=== PATIENT | male | born 1945 | race Asian ===

== ENCOUNTER 2023-12-16 14:33 | Inpatient (IN) | payer BC, MEDICAID ==
[~2023-12-16] VITALS: Ht 172.7 cm; Wt 51.5 kg
[2023-12-16 15:10] LABS: Basophils # (auto) 0 10 ^3/uL (0-0.2); Eosinophils # (auto) 0 10 ^3/uL (0-0.8); Nucleated Red Blood Cells % 0.1 %
[2023-12-16 15:11] LABS: Basophils % (auto) 0.1 % (0.0-2.0); Hematocrit 38.6 % (41.0-53.0); Hemoglobin 13.2 g/dL (13.5-17.5); Lymphocytes # (auto) 0.7 10 ^3/uL (0.4-5.4); Lymphocytes % (auto) 8.6 % (10.0-50.0); Mean Corpuscular Hemoglobin 37.2 pg (28.0-32.0); Mean Corpuscular Hgb Conc. 34.2 g/dL (32.0-36.0); Mean Corpuscular Volume 108.6 fL (80.0-100.0); Monocytes # (auto) 0.6 10 ^3/uL (0-1.3); Monocytes % (auto) 7.3 % (0.0-12.0); Neutrophils # (auto) 6.4 10 ^3/uL (1.6-8.6); Red Blood Cells 3.55 10^6/uL (4.5-5.90); Red Cell Distribution Width 15.8 % (11.8-14.3); White Blood Cell 7.7 10^3/uL (4.4-10.8)
[2023-12-16 16:40] LABS: Alanine Aminotransferase 34 U/L (7-40); Albumin 3.5 g/dL (3.2-4.8); Alkaline Phosphatase 88 U/L (46-116); Anion Gap 7 (5-15); Aspartate Aminotransferase 28 U/L (13-40); BUN/Creatinine Ratio 17.5 (10.0-20.0); Bilirubin, Total 1.4 mg/dL (0.2-1.0); Blood Urea Nitrogen 11 mg/dL (9-23); Carbon Dioxide 23 mmol/L (20-30); Chloride 106 mmol/L (98-107); Glucose 138 mg/dL (74-106); Potassium 3.2 mmol/L (3.5-5.1); Sodium 136 mmol/L (136-145); Total Protein 5.6 g/dL (5.7-8.2)
[2023-12-16] MEDS ORDERED: TAMS0.4C36 PO (18:23)
[2023-12-16] MEDS ORDERED: AMLO1TAB23 PO (18:23)
[2023-12-16] MEDS ORDERED: ATOR10TA52 PO (18:23)
[2023-12-16] MEDS ORDERED: FIN5T PO (18:23)
[2023-12-16] MEDS ORDERED: ACETAMINOPHEN 325 MG TAB PO PRN (18:30)
[2023-12-16] MEDS ORDERED: ONDANSETRON HCL 4 MG/2 ML VIAL IV PRN (18:30)
[2023-12-16] MEDS ORDERED: DOCUSATE SOD 100 MG CAP PO PRN (18:30)
[2023-12-16] MEDS ORDERED: NITROGLYCERIN 0.4 MG SL TAB SL PRN (18:30)
[2023-12-16] MEDS ORDERED: HYDROcodone-ACET 5/325MG TAB PO PRN (18:30)
[2023-12-16] MEDS ORDERED: MORPHINE SULFATE INJ 2 MG/ml SYRG IV PRN ×2 (18:30)
[2023-12-16] MEDS: POTASSIUM EFFERVESENT TAB 25 MEQ PO ONE (18:53)
[2023-12-16 20:00] VITALS: PULSE 83; RESP 24; O2SAT 93
[2023-12-16 21:57] VITALS: BP 94/49; PULSE 83; RESP 24; TEMP 97.6; O2SAT 93
[2023-12-16 22:58] VITALS: BP 115/71; PULSE 81; RESP 17; TEMP 97.6; O2SAT 95
[2023-12-16 23:22] VITALS: PULSE 81; RESP 17; O2SAT 95
[2023-12-17] VITALS (22 sets, daily range): BP systolic 88–122; BP diastolic 46–76; PULSE 74–103; RESP 16–22; TEMP 97.7–98.8; O2SAT 87–100
[2023-12-17] MEDS ORDERED: OMEP-448 PO (00:57)
[2023-12-17] MEDS ORDERED: ALBU108A5 INH (01:01)
[2023-12-17] MEDS: IPRATROPIUM BROM 0.5 MG/2.5ML INH SOL NEB SCH ×2 (01:02→14:23)
[2023-12-17] MEDS: ALBUTEROL SULF 2.5 MG/0.5ML(0.5%) NEB SOLN NEB SCH ×2 (01:02→14:23)
[2023-12-17 02:32] LABS: COVID19 ANTIGEN SOFIA FIA NEGATIVE (NEGATIVE)
[2023-12-17 07:11] LABS: Basophils # (auto) 0 10 ^3/uL (0-0.2); Basophils % (auto) 0.2 % (0.0-2.0); Eosinophils # (auto) 0 10 ^3/uL (0-0.8); Eosinophils % (auto) 0.4 % (0.0-7.0); Hematocrit 39.8 % (41.0-53.0); Hemoglobin 13.5 g/dL (13.5-17.5); Lymphocytes # (auto) 1.4 10 ^3/uL (0.4-5.4); Lymphocytes % (auto) 20.8 % (10.0-50.0); Mean Corpuscular Hemoglobin 37.5 pg (28.0-32.0); Mean Corpuscular Volume 110.2 fL (80.0-100.0); Monocytes # (auto) 0.7 10 ^3/uL (0-1.3); Monocytes % (auto) 11.1 % (0.0-12.0); Neutrophils # (auto) 4.4 10 ^3/uL (1.6-8.6); Neutrophils % (auto) 67.5 % (37.0-80.0); Red Blood Cells 3.61 10^6/uL (4.5-5.90); Red Cell Distribution Width 15.7 % (11.8-14.3); White Blood Cell 6.5 10^3/uL (4.4-10.8)
[2023-12-17 07:29] LABS: Alanine Aminotransferase 32 U/L (7-40); Albumin 3.6 g/dL (3.2-4.8); Alkaline Phosphatase 93 U/L (46-116); Anion Gap 3 (5-15); Aspartate Aminotransferase 25 U/L (13-40); BUN/Creatinine Ratio 17.2 (10.0-20.0); Blood Urea Nitrogen 11 mg/dL (9-23); Calcium 9.6 mg/dL (8.5-10.1); Carbon Dioxide 26 mmol/L (20-30); Chloride 109 mmol/L (98-107); Glucose 99 mg/dL (74-106); Potassium 3.6 mmol/L (3.5-5.1); Sodium 138 mmol/L (136-145)
[2023-12-17 07:30] LABS: Bilirubin, Total 1.3 mg/dL (0.2-1.0)
[2023-12-17] MEDS: amLODIPine BESYLATE 5 MG TAB PO SCH (09:01)
[2023-12-17] MEDS: ENOXAPARIN SOD 40 MG/0.4 ML SYRINGE SC SCH (09:01)
[2023-12-17] MEDS: FINASTERIDE 5 MG TAB PO SCH (09:02)
[2023-12-17 10:09] LABS: Urine Bacteria None Seen /hpf (None Seen)
[2023-12-17 10:32] LABS: Urine Blood Negative /uL (Negative); Urine Clarity Turbid (Clear); Urine Color Yellow (Yellow); Urine Protein, UAD Negative (Negative); Urine Specific Gravity 1.017 (1.001-1.035); Urine Urobilinogen 6 mg/dL (Negative); Urine WBC 1 /hpf (0 - 3); Urine pH 6.5 (5.0-9.0)
[2023-12-17 11:00] LABS: CRP High Sensitivity 12.53 mg/dL (<1.0)
[2023-12-17 11:02] LABS: Folate (Folic Acid) 13.32 ng/mL (>5.38)
[2023-12-17 11:10] LABS: Magnesium 2.2 mg/dL (1.6-2.6)
[2023-12-17 11:20] LABS: Rapid Influenza A Negative (Negative); Rapid Influenza B Negative (Negative)
[2023-12-17] MEDS: AZITHROMYCIN 500MG/ 250ML 250 ML IV SCH (11:27)
[2023-12-17] MEDS ORDERED: IOHEXOL 350 MG/ML 100ML IJ ONE (13:18)
[2023-12-17] MEDS: methylPREDNISolone SOD SUCC 40 MG/ML VL IV ONE (13:23)
[2023-12-17] MEDS: TAMSULOSIN HYDROCHLORIDE 0.4 MG CAP PO SCH (18:19)
[2023-12-17] MEDS: CYANOCOBALAMIN (B-12) 1000 MCG/1 ML VIAL IM ONE (18:20)
[2023-12-17] MEDS: LEVALBUTEROL HCL 1.25 MG/3 ML NEB NEB SCH (18:57)
[2023-12-17] MEDS: ATORVASTATIN 20 MG TAB PO SCH (22:11)
[2023-12-18] VITALS (13 sets, daily range): BP systolic 97–119; BP diastolic 55–69; PULSE 74–95; RESP 16–22; TEMP 36.7; O2SAT 92–99
[2023-12-18 06:51] LABS: Basophils # (auto) 0 10 ^3/uL (0-0.2); Eosinophils # (auto) 0 10 ^3/uL (0-0.8); Lymphocytes # (auto) 0.5 10 ^3/uL (0.4-5.4); Lymphocytes % (auto) 9.8 % (10.0-50.0); Monocytes # (auto) 0.4 10 ^3/uL (0-1.3); Neutrophils # (auto) 4.6 10 ^3/uL (1.6-8.6); Nucleated Red Blood Cells % 0.1 %; White Blood Cell 5.6 10^3/uL (4.4-10.8)
[2023-12-18 06:53] LABS: Basophils % (auto) 0.1 % (0.0-2.0); Hematocrit 34.5 % (41.0-53.0); Mean Corpuscular Hgb Conc. 34.8 g/dL (32.0-36.0); Mean Corpuscular Volume 109.3 fL (80.0-100.0); Monocytes % (auto) 7.5 % (0.0-12.0); Neutrophils % (auto) 82.6 % (37.0-80.0); Red Blood Cells 3.15 10^6/uL (4.5-5.90); Red Cell Distribution Width 15.1 % (11.8-14.3)
[2023-12-18 07:07] LABS: Alanine Aminotransferase 29 U/L (7-40); Albumin 3.4 g/dL (3.2-4.8); Alkaline Phosphatase 94 U/L (46-116); Anion Gap 4 (5-15); Aspartate Aminotransferase 27 U/L (13-40); BUN/Creatinine Ratio 28.3 (10.0-20.0); Blood Urea Nitrogen 15 mg/dL (9-23); Calcium 9.3 mg/dL (8.5-10.1); Carbon Dioxide 26 mmol/L (20-30); Chloride 107 mmol/L (98-107); Glucose 120 mg/dL (74-106); Magnesium 2.1 mg/dL (1.6-2.6); Potassium 3.7 mmol/L (3.5-5.1); Sodium 137 mmol/L (136-145)
[2023-12-18 07:08] LABS: Bilirubin, Total 0.7 mg/dL (0.2-1.0); Total Protein 5.6 g/dL (5.7-8.2)
[2023-12-18] MEDS ORDERED: AZIT-185 PO (08:32)
[2023-12-18] MEDS ORDERED: FLUT1AER3 IN (08:32)
[2023-12-18] MEDS ORDERED: ALBUAER3 IN (08:32)
[2023-12-18] MEDS ORDERED: PRED20TA2 PO (08:32)
[2023-12-18] MEDS: methylPREDNISolone SOD SUCC 40 MG/ML VL IV SCH (09:52)
[2023-12-18] MEDS ORDERED: UMEC1AER IN (10:08)
== END 2023-12-18 17:00 | disposition home or self-care (01) | DRG 189 ==
LOC: EDBD 14:33 → ER 14:33 → OVERFLOW 18:23 → WEST WING 22:22
PROVIDERS: ADMIT Internal Medicine Pulmonary Disease; ATTEND Internal Medicine Pulmonary Disease
DX: J96.21 Acute and chronic respiratory failure with hypoxia (principal); J44.1 Chronic obstructive pulmonary disease with (acute) exacerbation; I10 Essential (primary) hypertension; E78.5 Hyperlipidemia, unspecified; N40.0 Benign prostatic hyperplasia without lower urinary tract symptoms; Z20.822 Contact with and (suspected) exposure to COVID-19; K21.9 Gastro-esophageal reflux disease without esophagitis; F17.210 Nicotine dependence, cigarettes, uncomplicated; Z79.899 Other long term (current) drug therapy
CPT/HCPCS: 36415; 36600; 70450; 71045; 71275; 80053; 80061; 81001; 82607; 82746; 82805; 83605; 83735; 83880; 84443; 84484; 85025; 85379; 86141; 87081; 87426; 87804; 93005; 93970; 94640; G0378

== ENCOUNTER 2025-05-14 12:50 | Inpatient (IN) | payer BC, MEDICAID ==
[~2025-05-14] VITALS: Ht 172.7 cm; Wt 41.0 kg
[~2025-05-14 12:50] MED LIST: ALBU108A5 INH; ALBUAER3 IN; AMLO1TAB23 PO; ATOR10TA52 PO; AZIT-185 PO; FIN5T PO; OMEP-448 PO; PRED20TA2 PO; TAMS0.4C39 PO; UMEC1AER IN
--- NOTE | 2025-05-14 13:36 | ED.PDOC ---
Musculoskeletal HPI Comments A 79 YEAR OLD MALE PRESENTS TO THE ED WITH COMPLAINT OF RIGHT HIP PAIN. PATIENT PRESENTS WITH GRANDDAUGHTER WHO STATES THAT PATIENT HAS BEEN COMPLAINING OF RIGHT HIP PAIN FOR THE PAST ONE WEEK. PATIENT GRANDDAUGHTER STATES THAT PATIENT DENIES ANY ASSOCIATED INJURY OR TRAUMA. PATIENT HAS BEEN HAVING PAIN WHEN ATTEMPTING TO AMBULATE AND ASSOCIATED INCREASE PAIN WHEN SITTING. PATIENT DENIES FEVER, CHILLS, SHORTNESS OF BREATH, CHEST PAIN, ABDOMINAL PAIN, NAUSEA, VOMITING, HEADACHE, OR OTHER COMPLAINTS. NO OTHER SYMPTOMS OR MODIFYING FACTORS AT THIS TIME. PATIENT IS ALERT, ORIENTED X 4, AND HAS STEADY GAIT. Chief Complaint: Lower Extremity Time Seen by MD: 13:34 Reviewed Notes: Nurses Notes, Medications, Allergies Allergies: Coded Allergies: NO KNOWN ALLERGIES (Unverified , 12/16/23) Home Meds Active Scripts Umeclidinium-Vilanterol (Anoro Ellipta 62.5-25 Mcg/INH) 1 Aer Aer, 1 AER IN DAILY for 30 Days, #1 AER 2 Refills Prov:SRI ADEN RESIDENT 12/18/23 Albuterol Sulfate (VENTOLIN MDI) 90 Mcg Ih, 90 MCG IN PRN for 30 Days, #1 INH 2 Refills Prov:SRI ADEN RESIDENT 12/18/23 Prednisone (Prednisone) 20 Mg Tab, 20 MG PO DAILY for 5 Days, #5 MG Prov:SRI ADEN RESIDENT 12/18/23 Azithromycin (ZITHROMAX TABLET) 250 Mg Tb, 250 MG PO DAILY for 5 Days, #5 TAB Prov:SRI ADEN RESIDENT 12/18/23 Reported Medications Albuterol Sulfate (Albuterol Sulfate Hfa) 108 Mcg/Act Aer, INH 12/17/23 Omeprazole (Omeprazole Dr) 40 Mg Cap, 1 CAP PO DAILY 12/17/23 Tamsulosin Hcl (Tamsulosin Hcl) 0.4 Mg Cap, 1 TAB PO DAILY 12/16/23 Finasteride (Finasteride) 5 Mg Tab, 1 TAB PO DAILY 12/16/23 Atorvastatin Calcium (ATORVASTATIN CALCIUM) 10 Mg Tab, 1 TAB PO DAILY 12/16/23 Amlodipine Besylate (Amlodipine Besylate) 10 Mg Tab, 1 TAB PO DAILY 12/16/23 Information Source: Patient Mode of Arrival: Wheelchair Brought in by: GRANDDAUGHTER Location: Right Extremity Location: Hip Timing: Days Severity: Moderate Able to Move Extremity: No Bear Weight: Limited Pain: Moderate Hand Dominance: Right Mechanism: Spontaneous Circumstances: Unknown Onset of Symptoms: Spontaneous Symptoms: Pain DVT Risk Factors: NONE Last Tetanus: UTD Associated signs and symptoms: Hip pain Past Medical History PAST MEDICAL HISTORY: HTN Surgical History: Denies all surgeries Family History Family History: Reviewed,noncontributory to illness Social History Smoker: Non-Smoker Alcohol: Denies ETOH Use Drugs: Denies Drug Use Lives In: Home Constitutional: denies: chills, diaphoresis, fatigue, fever, malaise, sweats, weakness, others EENTM: denies: blurred vision, double vision, ear bleeding, ear discharge, ear drainage, ear pain, ear ringing, eye pain, eye redness, hearing loss, mouth pain, mouth swelling, nasal discharge, nose bleeding, nose congestion, nose pain, photophobia, tearing, throat pain, throat swelling, voice changes, others Respiratory: denies: cough, hemoptysis, orthopnea, SOB at rest, shortness of breath, SOB with excertion, stridor, wheezing, others Cardiovascular: denies: chest pain, dizzy spells, diaphoresis, Dyspnea on exertion, edema, irregular heart beat, left arm pain, lightheadedness, palpitations, PND, syncope, others Gastrointestinal: denies: abdomen distended, abdominal pain, blood streaked bowels, constipated, diarrhea, dysphagia, difficulty swallowing, hematemesis, me olman, nausea, poor appetite, poor fluid intake, rectal bleeding, rectal pain, vomiting, others Genitourinary: denies: burning, dysuria, flank pain, frequency, hematuria, incontinence, penile discharge, penile sore, pain, testicle pain, testicle swelling, urgency, others Neurological: denies: dizziness, fainting, headache, left sided numbness, left sided weakness, numbness, paresthesia, pre-existing deficit, right sided numbness, right sided weakness, seizure, speech problems, tingling, tremors, weakness, others Musculoskeletal: reports: joint pain (RIGHT HIP), muscle pain; denies: back pain, gout, joint swelling, muscle stiffness, neck pain, others Integumetry: denies: bruises, change in color, change in hair/nails, dryness, laceration, lesions, lumps, rash, wounds, others Allergic/Immunocompromised: denies: Difficulty Healing, Frequent Infections, Hives, Itching, others Hematologic/Lymphatic: denies: anemia, blood clots, easy bleeding, easy bruising, swollen glands, others Endocrine: denies: excessive hunger, excessive sweating, excessive thirst, excessive urination, flushing, intolerance to cold, intolerance to heat, unexplained weight gain, unexplained weight loss, others Psychiatric: denies: anxiety, bipolar disorder, depression, hopeless, panic disorder, schizophrenia, sleepless, suicidal, others All Other Systems: Reviewed and Negative Physical Exam General Appearance: Mild Distress, Thin HEENT: Normal ENT Inspection, PERRL/EOMI, Pharynx Normal, TMs Normal Neck: Full Range of Motion, Non-Tender, Normal, Normal Inspection Respiratory: Chest Non-Tender, Lungs Clear, No Accessory Muscle Use, No Respiratory Distress, Normal Breath Sounds Cardiovascular: No Edema, No JVD, No Murmur, No Gallop, Normal Peripheral Pulses, Regular Rate/Rhythm Breast Exam: Deferred Gastrointestinal: No Organomegaly, Non Tender, No Pulsatile Mass, Normal Bowel Sounds, Soft Genitalia: Deferred Pelvic: Deferred Rectal: Deferred Extremities: Decreased range of motion, No calf tenderness, Normal capillary refill, Normal inspection, No pedal edema, Tender (RIGHT POSTERIOR HIP, NO REDNESS, SWELLING AND DEFORMITY. ) Musculoskeletal : Apperance: Normal Neurologic: Alert, director of revenue cycle management II-XII nml as Tested, No Motor Deficits, Normal Affect, Normal Mood, No Sensory Deficits Cerebellar Function: Normal Reflexes: Normal Skin: Dry, Normal Color, Warm Peripheral Pulses: 2+ carotid (R), 2+ carotid (L) Lymphatic: No Adenopathy Was a procedure done? Was a procedure done?: No Differential Diagnosis EXT Differential Diagnosis: Fracture, Sprain, Strain, Arthritis, Bursitis X-Ray, Labs, Meds, VS Vital Signs Date Time Temp Pulse Resp B/P (MAP) Pulse Ox O2 Delivery O2 Flow Rate FiO2 05/14/25 15:35 97.9 88 16 113/75 (88) 95 97.9 05/14/25 15:35 88 16 95 Room Air 05/14/25 12:52 98.4 78 16 118/70 94 98.4 Lab Test 05/14/25 13:11 Range/Units White Blood Count 6.8 4.4-10.8 10^3/uL Red Blood Count 3.69 L 4.5-5.90 10^6/uL Hemoglobin 13.8 13.5-17.5 g/dL Hematocrit 39.8 L 41.0-53.0 % Mean Corpuscular Volume 107.8 H 80.0-100.0 fL Mean Corpuscular Hemoglobin 37.4 H 28.0-32.0 pg Mean Corpuscular Hemoglobin Concent 34.7 32.0-36.0 g/dL Red Cell Distribution Width 13.6 11.8-14.3 % Platelet Count 387 140-450 10^3/uL Mean Platelet Volume 8.2 6.9-10.8 fL Neutrophils (%) (Auto) 68.6 37.0-80.0 % Lymphocytes (%) (Auto) 21.3 10.0-50.0 % Monocytes (%) (Auto) 9.0 0.0-12.0 % Eosinophils (%) (Auto) 0.4 0.0-7.0 % Basophils (%) (Auto) 0.7 0.0-2.0 % Neutrophils # (Auto) 4.6 1.6-8.6 10 ^3/uL Lymphocytes # (Auto) 1.4 0.4-5.4 10 ^3/uL Monocytes # (Auto) 0.6 0-1.3 10 ^3/uL Eosinophils # (Auto) 0 0-0.8 10 ^3/uL Basophils # (Auto) 0 0-0.2 10 ^3/uL Nucleated Red Blood Cells 0.1 % Sodium Level 143 136-145 mmol/L Potassium Level 2.9 L 3.5-5.1 mmol/L Chloride Level 103 98-107 mmol/L Carbon Dioxide Level 29 20-31 mmol/L Anion Gap 11 5-15 Blood Urea Nitrogen 12 9-23 mg/dL Creatinine 0.74 0.700-1.30 mg/dL Glomerular Filtration Rate Calc 92 >90 mL/min BUN/Creatinine Ratio 16.2 10.0-20.0 Serum Glucose 152 H 74-106 mg/dL Calcium Level 9.3 8.7-10.4 mg/dL Current Medications Medications (Trade) Dose Ordered Sig/Christine Route Start Time Stop Time Status Last Admin Potassium Bicarbonate (Klor-Con/Ef) 50 meq ONCE ONCE PO 05/14/25 15:00 05/14/25 15:01 DC 05/14/25 15:21 Sodium Chloride 1,000 ml @ 1,000 mls/hr Q1H ONCE IV 05/14/25 15:00 05/14/25 15:59 DC 05/14/25 15:04 Acetaminophen/ Hydrocodone Bitart ([place] 5/325MG Tab) 1 tab ONCE ONCE PO 05/14/25 15:00 05/14/25 15:01 DC 05/14/25 15:20 [place] [address] Ph: [phone] DIAGNOSTIC IMAGING Diagnostic Imaging Report : [id number] Signed PATIENT: MILLER PAUL ACCT: [id number] UNIT: [id number] : 1945 LOC: ER ROOM / BED: / AGE / SEX: 79 / M ADM STATUS: REG ER SERVICE 1341 ORDERING PHYSICIAN: JUN CACERES PROCEDURE(s): RHPCT - CT R HIP WITH OUT CONTRAST REASON: RIGHT HIP PAIN, NO INJURY, UNABLE TO WALK ORDER NUMBER(s): [id number], ACCESSION NUMBER(s): [id number] EXAMINATION: CT CT R HIP WITH OUT CONTRAST INDICATION: RIGHT HIP PAIN, NO INJURY, UNABLE TO WALK COMPARISON: None TECHNIQUE: CT of the right hip was performed without contrast. Volume transverse images were obtained reconstructed in multiple planes using bone and soft tissue algorithms. FINDINGS: Osteopenia. No acute fracture or dislocation Mild right hip degenerative changes with osteophytosis. No joint effusion. Soft tissues are unremarkable. No fluid collections. Atherosclerotic vascular calcifications are noted. IMPRESSION: No acute abnormality of the right hip Mild right hip osteoarthritis ATED BY: SARITA SELBY MD DICTATED DATE/TIME: 05/14/251431 SIGNED BY: SARITA SELBY MD SIGNED DATE/TIME: 05/14/251431 CC: [place] [id number] Ph: [phone] DIAGNOSTIC IMAGING Diagnostic Imaging Report : [id number] Signed PATIENT: MILLER PAUL ACCT: [id number] UNIT: [id number] : 1945 LOC: ER ROOM / BED: / AGE / SEX: 79 / M ADM STATUS: REG ER SERVICE 1503 ORDERING PHYSICIAN: JUN CACERES PROCEDURE(s): LS2CT - LS SPINE WO CONTRAST REASON: LOW BACK PAIN TO RT HIP; UNABLE TO BEAR WEIGHT ORDER NUMBER(s): [id number], ACCESSION NUMBER(s): [id number] EXAM: CT LS SPINE WO CONTRAST HISTORY: LOW BACK PAIN TO RT HIP; UNABLE TO BEAR WEIGHT COMPARISON: None CTDIvol 7.14 mGy, DLP 238.09 mGy*cm. TECHNIQUE: Multiple axial CT images of the spine were obtained using bone algorithm. Axial and coronal reformatting was done. Bone and soft tissue windows were reviewed. FINDINGS: 5 [id number] lumbar-type vertebrae. Mild straightening of the lumbar lordosis. The vertebral body heights are maintained. Diffuse demineralization. Acute minimally displaced fracture of superior S2. Mild posterior disc bulges from L2-L3 through L5-S1 causing mild spinal canal stenosis at L3-L4 with severe spinal canal stenosis at L4-L5 and mild spinal canal stenosis at L5-S1. [id number]-[id number] bilateral neural foramina stenosis L4 with Moderate bilateral neural foramina stenosis at L4-L5 and severe bilateral neural foramina stenosis at L5-S1. The paraspinal muscles unremarkable. Punctate nonobstructing left renal calculus. Otherwise, Kidneys and ureters unremarkable. Large amount of fecal material within the partially visualized:. Emphysematous changes of the lung bases with bibasilar atelectasis / scarring. IMPRESSION: Acute minimally displaced fracture of superior S2. ATED BY: BATSHEVA MELENDEZ DO DICTATED DATE/TIME: 05/14/251548 SIGNED BY: BATSHEVA MELENDEZ DO SIGNED DATE/TIME: 05/14/251548 CC: X-Ray, Labs, Meds, VS Comment COURSE: EXTERNAL MEDICAL RECORDS REVIEWED: [NONE] INDEPENDENT HISTORIANS: [NONE] SOCIAL DETERMINANTS OF HEALTH: [NONE] LABS ORDERED: CBC, BMP, UA REVIEWED AND INTERPRETED RESULTS: NONE IMAGING ORDERED: RIGHT HIP CT TREATMENTS ORDERED: [place] 5/325 PO, KCL 75MEQ, 0,9 NS 1L PROCEDURES PERFORMED: NONE CRITICAL CARE TIME: NONE I HAVE DISCUSSED THE PATIENT WITH THE ATTENDING PHYSICIAN DR. BOUCHER AND HE AGREES WITH THE PATIENT'S PLAN OF CARE AND DISPOSITION. PATIENT PRESENTS TO THE ED WITH RIGHT HIP PAIN. PATIENT HAD CT HIP WHICH SHOWED ARTHRITIS OF RIGHT HIP. PATIENT HAD CT-LS-SPINE SHOWED: DEGENERATIVE DISC DISEASE/SPINAL STENOSIS AND S2 FX. PATIENT OTHERWISE HAD LAB SIGNIFICANT POTASSIUM OF 2.9. PATIENT OTHERWISE HAS DIFFICULTY AMBULATING AND PAIN WITH ATTEMPTED AMBULATION. PATIENT WE WILL BE ADMITTED TO THE HOSPITALIST TEAM FOR F URTHER EVALUATION REGARDING HIS GAIT DIFFICULTIES AND AND LOW POTASSIUM. Time of 1ST Reevaluation: 14:05 Reevaluation 1ST: Unchanged Time of 2ND Reevaluation: 17:01 Reevaluation 2ND: Unchanged Patient Education/Counseling: Diagnosis, Treatment Family Education/Counseling: Diagnosis, Treatment Departure 1 Departure Time of Disposition: 17:01 Impression: Primary Impression: Sacral fracture Qualified Codes: S32.111A - Minimally displaced zone i fracture of sacrum, initial encounter for closed fracture Additional Impressions: Spinal stenosis Qualified Codes: M48.05 - Spinal stenosis, thoracolumbar region Hip arthritis Qualified Codes: M16.11 - Unilateral primary osteoarthritis, right hip Hypokalemia Intractable pain Disposition: ADMITTED INPATIENT Condition: Serious Critical Care Note Critical Care Time?: No Stability Stability form required: Yes Unstable for transfer: Requires medication, ED Physician Assesment, Possible rapid decline Heart Score Heart Score: Heart Score Response (Comments) Value History N/A 0 EKG N/A 0 Age N/A 0 Risk Factors N/A 0 Troponin N/A 0 Total 0 I personally scribed for JUN CACERES ([email or web address]) on 05/14/25 at 13:36. Electronically submitted by Maylin Jane ([employer]). I personally scribed for JUN CACERES ([email or web address]) on 05/14/25 at 14:43. Electronically submitted by Maylin Jane ([email or web address]). I personally scribed for JUN CACERES ([email or web address]) on 05/14/25 at 14:44. Electronically submitted by Maylin Jane ([employer]). I personally scribed for JUN CACERES ([email or web address]) on 05/14/25 at 15:23. Electronically submitted by Maylin Jane ([facility] I personally scribed for JUN CACERES ([email or web address]) on 05/14/25 at 16:17. Electronically submitted by Maylin Jane ([employer]). I personally scribed for JUN CACERES ([email or web address]) on 05/14/25 at 16:23. Electronically submitted by Maylin Jane ([facility] JUN CACERES May 14, 2025 13:36
[2025-05-14 13:39] LABS: Hematocrit 39.8 % (41.0-53.0)
[2025-05-14 13:41] LABS: Hemoglobin 13.8 g/dL (13.5-17.5); Mean Corpuscular Hemoglobin 37.4 pg (28.0-32.0); Mean Corpuscular Volume 107.8 fL (80.0-100.0); Nucleated Red Blood Cells % 0.1 %
[2025-05-14 13:45] LABS: Chloride 103 mmol/L (98-107); Sodium 143 mmol/L (136-145)
[2025-05-14 13:46] LABS: Anion Gap 11 (5-15); Calcium 9.3 mg/dL (8.7-10.4); Carbon Dioxide 29 mmol/L (20-31)
[2025-05-14 13:52] LABS: BUN/Creatinine Ratio 16.2 (10.0-20.0); Blood Urea Nitrogen 12 mg/dL (9-23)
[2025-05-14 13:54] LABS: Glucose 152 mg/dL (74-106); Potassium 2.9 mmol/L (3.5-5.1)
--- NOTE | 2025-05-14 14:34 | DVH ---
EXAMINATION: CT CT R HIP WITH OUT CONTRAST INDICATION: RIGHT HIP PAIN, NO INJURY, UNABLE TO WALK COMPARISON: None TECHNIQUE: CT of the right hip was performed without contrast. Volume transverse images were obtained reconstructed in multiple planes using bone and soft tissue algorithms. FINDINGS: Osteopenia. No acute fracture or dislocation Mild right hip degenerative changes with osteophytosis. No joint effusion. Soft tissues are unremarkable. No fluid collections. Atherosclerotic vascular calcifications are noted. IMPRESSION: No acute abnormality of the right hip Mild right hip osteoarthritis
[2025-05-14] MEDS: SODIUM CHLORIDE 0.9% 1,000 ML IV ONE (15:04)
[2025-05-14] MEDS: HYDROcodone-ACET 5/325MG TAB PO ONE (15:20)
[2025-05-14] MEDS: POTASSIUM EFFERVESENT TAB 25 MEQ PO ONE ×2 (15:21→20:07)
[2025-05-14 15:35] VITALS: BP 113/75; PULSE 88; RESP 16; TEMP 97.9; O2SAT 95
--- NOTE | 2025-05-14 15:52 | DVH ---
EXAM: CT LS SPINE WO CONTRAST HISTORY: LOW BACK PAIN TO RT HIP; UNABLE TO BEAR WEIGHT COMPARISON: None CTDIvol 7.14 mGy, DLP 238.09 mGy*cm. TECHNIQUE: Multiple axial CT images of the spine were obtained using bone algorithm. Axial and coronal reformatting was done. Bone and soft tissue windows were reviewed. FINDINGS: 5 [id number] lumbar-type vertebrae. Mild straightening of the lumbar lordosis. The vertebral body heights are maintained. Diffuse demineralization. Acute minimally displaced fracture of superior S2. Mild posterior disc bulges from L2-L3 through L5-S1 causing mild spinal canal stenosis at L3-L4 with severe spinal canal stenosis at L4-L5 and mild spinal canal stenosis at L5-S1. Cgfg-th-[id number] bilateral neural foramina stenosis L4 with Moderate bilateral neural foramina stenosis at L4-L5 and severe bilateral neural foramina stenosis at L5-S1. The paraspinal muscles unremarkable. Punctate nonobstructing left renal calculus. Otherwise, Kidneys and ureters unremarkable. Large amount of fecal material within the partially visualized:. Emphysematous changes of the lung bases with bibasilar atelectasis / scarring. IMPRESSION: Acute minimally displaced fracture of superior S2.
[2025-05-14 21:58] LABS: Chloride 105 mmol/L (98-107); Sodium 142 mmol/L (136-145)
[2025-05-14 21:59] LABS: Anion Gap 8 (5-15); Carbon Dioxide 29 mmol/L (20-31); Potassium 3.3 mmol/L (3.5-5.1)
[2025-05-14 22:04] LABS: BUN/Creatinine Ratio 14.7 (10.0-20.0); Blood Urea Nitrogen 11 mg/dL (9-23)
[2025-05-14 22:06] LABS: Calcium 8.3 mg/dL (8.7-10.4); Glucose 109 mg/dL (74-106)
--- NOTE | 2025-05-14 23:05 | DVHHP2 ---
History of Present Illness History of Present Illness Patient is 79 years old male Irish language speaking with a past medical history of COPD, hypertension, hyperlipidemia, BPH, nicotine dependence came with a complaint of right hip pain. As per patient he has been having right hip pain, sudden onset, started when he was sleeping, 9/10, constant, increased with movement, decreased with rest. Patient reported he usually use wheelchair at home but lately minimal movement is causing him hip pain. Patient also reported constipation for last 4-5 days. . Patient denied any fever, redness or swelling, trauma or fall or injury to the hip or back. Patient denied any fever, dysuria, diarrhea, nausea or vomiting chest pain no shortness of breaths. Initial lab workup revealed MCV 107, potassium 2.[address] scan of the right hip revealed-No acute abnormality of the right hip. Mild right hip osteoarthritis. Acute minimally displaced fracture of superior S2. Mild post erior disc bulges from L2-L3 through L5-S1 causing mild spinal canal stenosis at L3-L4 with severe spinal canal stenosis at L4-L5 and mild spinal canal stenosis at L5-S1. Pmlj-ld-raejhbvi bilateral neural foramina stenosis L4 with Moderate bilateral neural foramina stenosis at L4-L5 and severe bilateral neural foramina stenosis at L5-S1. PMH-COPD, hypertension, hyperlipidemia, BPH, nicotine dependence PSH- none Family history-none Allergy- NKDA Personal History/ Social History- smokes 10 cigarettes per day for last 50 years almost, drinks alcohol daily, 3 of the 75 mL bottle liquor every day, denies substance abuse, lives with Review of Systems Review of Systems Cardiovascular- deny acute chest pain or shortness of breath or cough or palpitation Respiratory denies cough or short of breath or wheezing Gastrointestinal- denies any rectal bleeding, nausea or vomiting Neurological- denies acute dysarthria, dysphagia, change in vision Psychiatry- denies depression or SI or HI Skin- denies acute rash or purpura Allergies: Coded Allergies: NO KNOWN ALLERGIES (Unverified , 12/16/23) Medications Current Medications Medications Dose Ordered Sig/Christine Route Start Time Stop Time Status Last Admin Dose Admin Acetaminophen/ Hydrocodone Bitart 1 tab Q4HP PRN PO 05/14/25 23:15 UNV Docusate Sodium 100 mg BIDPRN PRN PO 05/14/25 23:15 UNV Enoxaparin Sodium 40 mg DAILY SC 05/15/25 10:00 UNV Acetaminophen 650 mg Q6HP PRN PO 05/14/25 23:15 UNV Exam Vital Signs Vital Signs Date Time Temp Pulse Resp B/P (MAP) Pulse Ox O2 Delivery O2 Flow Rate FiO2 05/14/25 15:35 97.9 88 16 113/75 (88) 95 97.9 05/14/25 15:35 Room Air Exam General examination- awake, alert, oriented HEENT- PEERLA, no acute nasal discharge Cardiovascular- S1-S2 audible, rate and rhythm regular, no murmur Respiratory- CTAB, no wheeze or rhonchi Gastrointestinal-nontender, bowel sound+. Nondistended Musculoskeletal-right buttock tenderness Lower extremity- no leg edema Neurological- cranial nerves intact, no acute dysarthria or dysphagia Psychiatry- denies depression or SI or HI Skin- no acute rash or purpura Labs/Xrays Labs Test 05/14/25 20:35 05/14/25 13:11 Range/Units Sodium Level 142 136-145 mmol/L Potassium Level 3.3 L 3.5-5.1 mmol/L Chloride Level 105 98-107 mmol/L Carbon Dioxide Level 29 20-31 mmol/L Anion Gap 8 5-15 Blood Urea Nitrogen 11 9-23 mg/dL Creatinine 0.75 0.700-1.30 mg/dL Glomerular Filtration Rate Calc 91 >90 mL/min BUN/Creatinine Ratio 14.7 10.0-20.0 Serum Glucose 109 H 74-106 mg/dL Calcium Level 8.3 L 8.7-10.4 mg/dL White Blood Count 6.8 4.4-10.8 10^3/uL Red Blood Count 3.69 L 4.5-5.90 10^6/uL Hemoglobin 13.8 13.5-17.5 g/dL Hematocrit 39.8 L 41.0-53.0 % Mean Corpuscular Volume 107.8 H 80.0-100.0 fL Mean Corpuscular Hemoglobin 37.4 H 28.0-32.0 pg Mean Corpuscular Hemoglobin Concent 34.7 32.0-36.0 g/dL Red Cell Distribution Width 13.6 11.8-14.3 % Platelet Count 387 140-450 10^3/uL Mean Platelet Volume 8.2 6.9-10.8 fL Neutrophils (%) (Auto) 68.6 37.0-80.0 % Lymphocytes (%) (Auto) 21.3 10.0-50.0 % Monocytes (%) (Auto) 9.0 0.0-12.0 % Eosinophils (%) (Auto) 0.4 0.0-7.0 % Basophils (%) (Auto) 0.7 0.0-2.0 % Neutrophils # (Auto) 4.6 1.6-8.6 10 ^3/uL Lymphocytes # (Auto) 1.4 0.4-5.4 10 ^3/uL Monocytes # (Auto) 0.6 0-1.3 10 ^3/uL Eosinophils # (Auto) 0 0-0.8 10 ^3/uL Basophils # (Auto) 0 0-0.2 10 ^3/uL Nucleated Red Blood Cells 0.1 % SEPSIS Sepsis Screen Date sepsis recognized/suspect: May 14, 2025 Time Sepsis recognized/suspect: 1257 Recent Procedure: No On Antibiotic Therapy: No Respiratory Rate >20: No Heart Rate >90: No Temp<36 C (96.8 F) or >38.3 C: No SBP <90 or MAP <65 mmHG: No New Acute Mental Status Change: No Is the patient on CPAP, BIPAP,: No Physician Orders Admit (05/14/25 23:02) Code Status (05/14/25 23:02) 2 Gm Sodium Diet (05/15/25 Breakfast) Hydrocodone-Acet 5/325mg Tab ([place] 5/32 (05/14/25 23:15) Docusate Sodium Capsule (Colace Capsule) (05/14/25 23:15) Enoxaparin Sodium (Lovenox) (05/15/25 10:00) Complete Blood Count (05/15/25 04:00) Comprehensive Metabolic Panel (05/15/25 04:00) Cardiac Diet-2gna,Lofat,Lochol (05/15/25 Breakfast) Acetaminophen Tablet (Tylenol Tablet) (05/14/25 23:15) Notify Of Changes From Base (05/14/25 23:02) Vital Signs Date Time Temp Pulse Resp B/P (MAP) Pulse Ox O2 Delivery O2 Flow Rate FiO2 05/14/25 15:35 97.9 88 16 113/75 (88) 95 97.9 05/14/25 15:35 88 16 95 Room Air Laboratory Tests Test 05/14/25 13:11 White Blood Count 6.8 10^3/uL (4.4-10.8) Medications Medications Dose Ordered Sig/Christine Route Start Time Stop Time Status Last Admin Dose Admin Acetaminophen/ Hydrocodone Bitart 1 tab ONCE ONCE PO 05/14/25 15:00 05/14/25 15:01 DC 05/14/25 15:20 1 TAB Potassium Bicarbonate 25 meq ONCE ONCE PO 05/14/25 17:15 05/14/25 17:16 DC 05/14/25 20:07 25 MEQ Potassium Bicarbonate 50 meq ONCE ONCE PO 05/14/25 15:00 05/14/25 15:01 DC 05/14/25 15:21 50 MEQ Sodium Chloride 1,000 ml @ 1,000 mls/hr Q1H ONCE IV 05/14/25 15:00 05/14/25 15:59 DC 05/14/25 15:04 1,000 MLS/HR Assessment/Plan Assessment/Plan Assessment and plan #Acute minimally displaced fracture of superior S2. # intractable right hip pain likely due to osteoarthritis # spinal stenosis # lumbar lordosis #Mild posterior disc bulges from L2-L3 through L5-S1 - CT scan of the right hip revealed-No acute abnormality of the right hip. Mild right hip osteoarthritis -CT scan of the lumbar spine- Acute minimally displaced fracture of superior S2. Spinal stenosis lumbar 3 to lumbar 5 -continue pain medication as prescribed -ordered orthopedic consult # COPD no acute exacerbation -nebulization p.r.n. as prescribed # BPH -resume home medication Flomax and finasteride # hypertension - resume home medication amlodipine # alcohol abuse -ordered banana bag -ordered thiamine and folic acid -on CIWA protocol -counseled about the effect of alcoholism on health # current smoker -counseled about the effect of smoking on health Doix-zre-hcgd diet PCP- Domingo Morejon Goals of care, Code status full code ; discussed with >15 minutes PUD prophylaxis: No acute indicate DVT prophylaxis: Lovenox Plan discussed with Dr. Vallejo , nursing staff, patient Total time spent on patient evaluation, chart review, assessment and plan, discussion discussion >35 minutes Plan discussed with: Patient, Other (RN,.) My Orders Orders - ONUR DOE Procedure Category Date Status Time Admit ADMIT 05/14/25 Transmitted 23:02 Code Status CODE 05/14/25 Transmitted 23:02 2 Gm Sodium Diet DIET 05/15/25 Transmitted Breakfast Hydrocodone-Acet PHA 05/14/25 Logged 5/325mg Tab ([place] 23:15 Docusate Sodium PHA 05/14/25 Logged Capsule (Colace 23:15 Enoxaparin Sodium PHA 05/15/25 Logged (Lovenox) 10:00 Complete Blood Count LAB 05/15/25 Verified 04:00 Comprehensive LAB 05/15/25 Verified Metabolic Panel 04:00 Cardiac DIET 05/15/25 Transmitted Diet-2gna,Lofat,Lochol Breakfast Acetaminophen Tablet PHA 05/14/25 Logged (Tylenol Tablet) 23:15 Notify Of Changes MABEL 05/14/25 In Process From Base 23:02 Date of Service: May 14, 2025 Billing Provider: BRISA VALLEJO MD Common Visit Codes: 06154-BRVOVXR INP/OBS CARE (HIGH) Secondary Visit Codes: 51630-[id number] CARE PLAN 30 MINUTES ONUR DOE May 14, 2025 23:05
[2025-05-14] MEDS ORDERED: HYDROcodone-ACET 5/325MG TAB PO PRN (23:15)
[2025-05-14] MEDS ORDERED: DOCUSATE SOD 100 MG CAP PO PRN (23:15)
[2025-05-14] MEDS ORDERED: IPRATROPIUM BROM 0.5 MG/2.5ML INH SOL NEB PRN (23:15)
[2025-05-14] MEDS ORDERED: ALBUTEROL SULF 2.5 MG/0.5ML(0.5%) NEB SOLN NEB PRN (23:15)
[2025-05-14] MEDS ORDERED: THIAMINE 100mg/ml INJ (200mg/2ml VIAL) IV ONE (23:15)
[2025-05-14] MEDS ORDERED: ACETAMINOPHEN 325 MG TAB PO PRN (23:15)
[2025-05-14] MEDS: FOLIC ACID 1 MG in D5W 5% 50 ML INJ ONE (23:44)
[2025-05-14] MEDS ORDERED: FOLIC ACID 1 MG TAB PO ONE (23:45)
--- NOTE | 2025-05-15 06:41 | DVHDSRES ---
Discharge Summary Date of Admission Resident Creating Document: ONUR DOE RESIDENT May 14, 2025 at 23:02 Date of Discharge: May 15, 2025 Admitting Diagnosis Sacral fracture, intractable right hip pain Labs/Diagnostic Data: Laboratory Results Test 05/14/25 20:35 05/14/25 13:11 Sodium Level 142 mmol/L (136-145) Potassium Level 3.3 mmol/L (3.5-5.1) Chloride Level 105 mmol/L (98-107) Carbon Dioxide Level 29 mmol/L (20-31) Anion Gap 8 (5-15) Blood Urea Nitrogen 11 mg/dL (9-23) Creatinine 0.75 mg/dL (0.700-1.30) Glomerular Filtration Rate Calc 91 mL/min (>90) BUN/Creatinine Ratio 14.7 (10.0-20.0) Serum Glucose 109 mg/dL (74-106) Calcium Level 8.3 mg/dL (8.7-10.4) White Blood Count 6.8 10^3/uL (4.4-10.8) Red Blood Count 3.69 10^6/uL (4.5-5.90) Hemoglobin 13.8 g/dL (13.5-17.5) Hematocrit 39.8 % (41.0-53.0) Mean Corpuscular Volume 107.8 fL (80.0-100.0) Mean Corpuscular Hemoglobin 37.4 pg (28.0-32.0) Mean Corpuscular Hemoglobin Concent 34.7 g/dL (32.0-36.0) Red Cell Distribution Width 13.6 % (11.8-14.3) Platelet Count 387 10^3/uL (140-450) Mean Platelet Volume 8.2 fL (6.9-10.8) Neutrophils (%) (Auto) 68.6 % (37.0-80.0) Lymphocytes (%) (Auto) 21.3 % (10.0-50.0) Monocytes (%) (Auto) 9.0 % (0.0-12.0) Eosinophils (%) (Auto) 0.4 % (0.0-7.0) Basophils (%) (Auto) 0.7 % (0.0-2.0) Neutrophils # (Auto) 4.6 10 ^3/uL (1.6-8.6) Lymphocytes # (Auto) 1.4 10 ^3/uL (0.4-5.4) Monocytes # (Auto) 0.6 10 ^3/uL (0-1.3) Eosinophils # (Auto) 0 10 ^3/uL (0-0.8) Basophils # (Auto) 0 10 ^3/uL (0-0.2) Nucleated Red Blood Cells 0.1 % Other Laboratory Tests 05/14/25 20:35 05/14/25 13:11 Brief Hx & Hospital Course: Patient is 79 years old male Frisian language speaking with a past medical history of COPD, hypertension, hyperlipidemia, BPH, nicotine dependence came with a complaint of right hip pain. As per patient he has been having right hip pain, sudden onset started when he was sleeping, 9/10, constant, increased with movement, decreased with rest. Patient reported he used usually wheelchair at home but this stage he has been minimal movement is causing him hip pain. Patient denied any fever, redness or swelling, trauma or fall or injury to the hip or back. Patient also reported constipation for last 4-5 days. Patient denied any fever, dysuria, diarrhea, nausea or vomiting chest pain no shortness of breaths. Initial lab workup revealed MCV 107, potassium 2.[address] scan of the right hip revealed-No acute abnormality of the right hip. Mild right hip osteoarthritis. Acute minimally displaced fracture of superior S2. Mild posterior disc bulges from L2-L3 through L5-S1 causing mild spinal canal stenosis at L3-L4 with severe spinal canal stenosis at L4-L5 and mild spinal canal stenosis at L5-S1. Xexv-ys-kyemmgwn bilateral neural foramina stenosis L4 with Moderate bilateral neural foramina stenosis at L4-L5 and severe bilateral neural foramina stenosis at L5-S1. Patient was treated conservatively, orthopedic consultation order was in place. Patient eloped, patient's condition was undetermined on discharge. Operations or Procedures [address] [address] Ph: [phone] DIAGNOSTIC IMAGING Diagnostic Imaging Report : [id number] Signed PATIENT: MILLER PAUL ACCT: [id number] UNIT: [id number] : 1945 LOC: ER ROOM / BED: / AGE / SEX: 79 / M ADM STATUS: REG ER SERVICE [id number] ORDERING PHYSICIAN: JUN CACERES PROCEDURE(s): RHPCT - CT R HIP WITH OUT CONTRAST REASON: RIGHT HIP PAIN, NO INJURY, UNABLE TO WALK ORDER NUMBER(s): [id number], ACCESSION NUMBER(s): [id number] EXAMINATION: CT CT R HIP WITH OUT CONTRAST INDICATION: RIGHT HIP PAIN, NO INJURY, UNABLE TO WALK COMPARISON: None TECHNIQUE: CT of the right hip was performed without contrast. Volume transverse images were obtained reconstructed in multiple planes using bone and soft tissue algorithms. FINDINGS: Osteopenia. No acute fracture or dislocation Mild right hip degenerative changes with osteophytosis. No joint effusion. Soft tissues are unremarkable. No fluid collections. Atherosclerotic vascular calcifications are noted. IMPRESSION: No acute abnormality of the right hip Mild right hip osteoarthritis ATED BY: SARITA SELBY MD DICTATED DATE/TIME: 05/14/251431 SIGNED BY: SARITA SELBY MD SIGNED DATE/TIME: 05/14/251431 CC: [place] [id number] Ph: [phone] DIAGNOSTIC IMAGING Diagnostic Imaging Report : [id number] Signed PATIENT: MILLER PAUL ACCT: [id number] UNIT: [id number] : 1945 LOC: ER ROOM / BED: / AGE / SEX: 79 / M ADM STATUS: REG ER SERVICE 1503 ORDERING PHYSICIAN: JUN CCAERES PROCEDURE(s): LS2CT - LS SPINE WO CONTRAST REASON: LOW BACK PAIN TO RT HIP; UNABLE TO BEAR WEIGHT ORDER NUMBER(s): [id number], ACCESSION NUMBER(s): [id number] EXAM: CT LS SPINE WO CONTRAST HISTORY: LOW BACK PAIN TO RT HIP; UNABLE TO BEAR WEIGHT COMPARISON: None CTDIvol 7.14 mGy, DLP 238.09 mGy*cm. TECHNIQUE: Multiple axial CT images of the spine were obtained using bone algorithm. Axial and coronal reformatting was done. Bone and soft tissue windows were reviewed. FINDINGS: 5 gpb-buy-ptxbjty lumbar-type vertebrae. Mild straightening of the lumbar lordosis. The vertebral body heights are maintained. Diffuse demineralization. Acute minimally displaced fracture of superior S2. Mild posterior disc bulges from L2-L3 through L5-S1 causing mild spinal canal stenosis at L3-L4 with severe spinal canal stenosis at L4-L5 and mild spinal canal stenosis at L5-S1. Jghh-ia-spiyghwg bilateral neural foramina stenosis L4 with Moderate bilateral neural foramina stenosis at L4-L5 and severe bilateral neural foramina stenosis at L5-S1. The paraspinal muscles unremarkable. Punctate nonobstructing left renal calculus. Otherwise, Kidneys and ureters unremarkable. Large amount of fecal material within the partially visualized:. Emphysematous changes of the lung bases with bibasilar atelectasis / scarring. IMPRESSION: Acute minimally displaced fracture of superior S2. ATED BY: BATSHEVA MELENDEZ DO DICTATED DATE/TIME: 05/14/25 1549 SIGNED BY: BATSHEVA MELENDEZ DO SIGNED DATE/TIME: 05/14/25 1549 CC: Condition at Discharge: Undetermined Final Diagnosis/Problems List #Acute minimally displaced fracture of superior S2. # intractable right hip pain likely due to osteoarthritis # spinal stenosis # lumbar lordosis #Mild posterior disc bulges from L2-L3 through L5-S1 # COPD no acute exacerbation # BPH # hypertension # alcohol abuse # current smoker Discharge Disposition: Eloped Discharge Instruct/Medications Diet comment: As above Follow Up/Referral: As above Medications: As above Scheduled Albuterol Sulfate (Ventolin Mdi), 90 MCG IN PRN Amlodipine Besylate (Amlodipine Besylate), 1 TAB PO DAILY, (Reported) Atorvastatin Calcium (Atorvastatin Calcium), 1 TAB PO DAILY, (Reported) Azithromycin (Zithromax Tablet), 250 MG PO DAILY Finasteride (Finasteride), 1 TAB PO DAILY, (Reported) Omeprazole (Omeprazole Dr), 1 CAP PO DAILY, (Reported) Prednisone (Prednisone), 20 MG PO DAILY Tamsulosin Hcl (Tamsulosin Hcl), 1 TAB PO DAILY, (Reported) Umeclidinium-Vilanterol (Anoro Ellipta 62.5-25 Mcg/INH), 1 AER IN DAILY Miscellaneous Medications Albuterol Sulfate (Albuterol Sulfate Hfa), INH, (Reported) Discharge Statement: "Patient was advised to return to the ER or call 911 if any headaches, dizziness, shortness of breath, chest pain, abdominal pain, bleeding, fevers, or worsening of medical condition. Patient was counseled about treatment plan, medications, possible side effects, patientverbalized understanding. All questions were answered to the best of my ability. This discharge took greater then 30 minutes in planning, reviewing documentation, counseling the patient, and discussing with other team members." ASSESSMENT ASSESSMENT Assessment ONUR DOE RESIDENT May 15, 2025 06:41
[2025-05-15] MEDS ORDERED: PANTOPRAZOLE 40 MG TAB PO SCH (10:00)
[2025-05-15] MEDS ORDERED: THIAMINE HCL 100 MG TAB PO SCH (10:00)
[2025-05-15] MEDS ORDERED: FOLIC ACID 1 MG TAB PO SCH ×2 (10:00)
[2025-05-15] MEDS ORDERED: FINASTERIDE 5 MG TAB PO SCH (10:00)
[2025-05-15] MEDS ORDERED: TAMSULOSIN HYDROCHLORIDE 0.4 MG CAP PO SCH (10:00)
[2025-05-15] MEDS ORDERED: ENOXAPARIN SOD 40 MG/0.4 ML SYRINGE SC SCH (10:00)
[2025-05-15] MEDS ORDERED: FOLIC ACID 1 MG, MAGNESIUM SULF SDV 50% 8 MEQ, MULTIPLE VITAMIN 10 ML, THIAMINE INJ 100... INJ SCH (18:00)
[2025-05-15] MEDS ORDERED: ATORVASTATIN 20 MG TAB PO SCH (22:00)
== END 2025-05-15 00:22 | disposition left against medical advice (07) | DRG 552 ==
LOC: ER 12:50 → OVERFLOW 23:02
PROVIDERS: ADMIT Internal Medicine; ATTEND Orthopaedic Surgery
DX: S32.111A Minimally displaced Zone I fracture of sacrum, initial encounter for closed fracture (principal); E78.5 Hyperlipidemia, unspecified; F10.10 Alcohol abuse, uncomplicated; J44.9 Chronic obstructive pulmonary disease, unspecified; I10 Essential (primary) hypertension; M16.11 Unilateral primary osteoarthritis, right hip; M48.061 Spinal stenosis, lumbar region without neurogenic claudication; M48.07 Spinal stenosis, lumbosacral region; N40.0 Benign prostatic hyperplasia without lower urinary tract symptoms; M40.56 Lordosis, unspecified, lumbar region; E87.6 Hypokalemia; F17.200 Nicotine dependence, unspecified, uncomplicated; K59.00 Constipation, unspecified; Z71.41 Alcohol abuse counseling and surveillance of alcoholic; Z79.899 Other long term (current) drug therapy; Z71.6 Tobacco abuse counseling; Z53.29 Procedure and treatment not carried out because of patient's decision for other reasons; X58.XXXA Exposure to other specified factors, initial encounter; Y93.89 Activity, other specified; Y92.89 Other specified places as the place of occurrence of the external cause; Y99.8 Other external cause status
CPT/HCPCS: 36415; 72131; 73700; 80048; 85025; 96360; G0378; J7060